=== PATIENT | female | born 1960 | race Caucasian/White ===

== ENCOUNTER 2023-11-16 09:21 | Emergency (ER) | payer MEDICARE, SELFPAY ==
[2023-11-16 09:27] VITALS: BP 145/73; PULSE 71; TEMP 36.6; O2SAT 98; BMI 39.5
--- NOTE | 2023-11-16 09:48 | ED_ITS ---
HPI HPI - General Adult General Chief complaint: Skin/Abscess/Foreign Body Stated complaint: LE PAIN Time Seen by Provider: 11/16/23 09:43 Source: patient Mode of arrival: walk-in History of Present Illness HPI narrative: This patient is here complaining of pain over her right lateral ankle. To her knowledge she has not had change in activity or injury to the area. She does have a history of gout previously. She said the pain was so bad last night it woke her up at 4:00 when she was not even weightbearing. She is taken several dose Tylenol without any benefit. She cannot take NSAIDs because of kidney pr oblems. She is not running a fever. She has not no other joint involvement. Related Data Allergies Allergy/AdvReac Type Severity Reaction Status Date / Time No Known Drug Allergies Allergy Verified 11/16/23 09:31 Opioid HPI Opioid Management Most Recent Opioid Data: No Data to Display Exam Narrative Exam Narrative: Awake alert pleasant vital signs are stable she is afebrile. Problem focused examination shows her calf Achilles area can be completely normal. There is no pain with pressure over her heel. The metatarsals are asymptomatic. She has no tenderness over the medial joint. She does have some soft tissue swelling noted over the lateral ankle mortise. There is no ecchymosis and there is no indication of cellulitis or insect bite. There is slight warmth to the joint on that side. And she does have pain with manipulation of the joint there. There is no overlying cellulitis. Constitutional Vital Signs, click to edit/add: Last Vital Signs Temp 98 F 11/16/23 09:27 Pulse 70 11/16/23 10:41 Resp 18 11/16/23 10:41 BP 138/73 11/16/23 10:41 Pulse Ox 98 11/16/23 10:41 Course Vital Signs Vital signs: Vital Signs Temperature 98 F 11/16/23 09:27 Pulse Rate 71 11/16/23 09:27 Respiratory Rate 20 11/16/23 09:27 Blood Pressure 145/73 H 11/16/23 09:27 Pulse Oximetry 98 11/16/23 09:27 Temperature 98 F 11/16/23 09:27 Pulse Rate 70 11/16/23 10:41 Respiratory Rate 18 11/16/23 10:41 Blood Pressure 138/73 11/16/23 10:41 Pulse Oximetry 98 11/16/23 10:41 Medical Decision Making MDM Narrative Medical decision making narrative: This patient's white blood cell count is normal however uric acid level is substantially elevated. This is consistent with an acute gout attack. This was discussed with the patient. She cannot take NSAIDs because of kidney problems. Will put her on a steroid burst and analgesics. She is not to apply ice Lab Data Labs: Lab Results 11/16/23 Range/Units 09:56 WBC 7.5 (4.0-11.0) 10^3/uL RBC 4.16 L (4.20-5.40) 10^6/uL Hgb 12.7 (12.0-16.0) g/dL Hct 39.0 (36.0-48.0) % MCV 93.8 (81.0-99.0) fL MCH 30.5 (26.7-34.0) pg MCHC 32.6 (29.9-35.2) g/dL RDW 12.9 (11.0-15.0) % Plt Count 245 (150-450) 10^3/uL MPV 10.9 (9.5-13.5) fL Neut % (Auto) 68.8 (43.0-75.0) % Lymph % (Auto) 22.1 (20.5-60.0) % [place] % (Auto) 6.4 (1.7-12.0) % Eos % (Auto) 1.9 (0.9-7.0) % Baso % (Auto) 0.5 (0.2-2.0) % Neut # (Auto) 5.1 (1.4-6.5) 10^3/uL Lymph # (Auto) 1.7 (1.2-3.8) 10^3/uL [place] # (Auto) 0.5 (0.3-0.8) 10^3/uL Eos # (Auto) 0.1 (0.0-0.7) 10^3/uL Baso # (Auto) 0.0 (0.0-0.1) 10^3/uL Abs Immat Gran (auto) 0.02 (0.00-0.03) 10^3/uL Imm/Tot Granulo (auto) 0.3 (0.0-0.5) % Uric Acid 7.3 H (2.6-6.0) mg/dL Discharge Plan Discharge Stand Alone Forms: Portal Instructions Chief Complaint: Skin/Abscess/Foreign Body Clinical Impression: Gout attack Patient Disposition: Home, Self-Care Time of Disposition Decision: 10:46 Print Language: Norwegian Additional Instructions: Prednisone/[place] Referrals: ELIANA CORONADO MD [Primary Care Provider] - 1 week
--- NOTE | 2023-11-16 09:49 | XR_ITS ---
The [address] [address] Patient Name: SAYRA BARAJAS MRN: [id number] date: 1960 Sex: F Assigned Patient Location: ER Current Patient Location: ER Accession/Order Number: [id number] Exam Date: 11/16/2023 10:30 Report Date: 11/16/2023 11:56 At the request of: GRAZYNA LAWRENCE Procedure: XR ankle RT min 3V EXAM: XR ankle RT min 3V 11/16/2023 FINDINGS: Frontal, oblique, and lateral views for 3 views obtained. HISTORY: Pain COMPARISON: None. XR/XR ankle RT min 3V IMPRESSION: 1. There is nonspecific soft tissue swelling and subcutaneous edematous changes throughout the right lower extremity. 2. No acute fracture or dislocation. The alignment is satisfactory. 3. Small calcaneal enthesophytes at the insertion sites of the Achilles tendon and plantar aponeurosis noted. There is no radiopaque foreign body. Mild multifocal arthritic changes of the midfoot are noted. Electronically authenticated by: PAMELA LAURA Date: 11/16/2023 11:56
[2023-11-16 10:04] LABS: Basophils Percent Auto 0.5 % (0.2-2.0); Eosinophils Absolute Auto 0.1 10^3/uL (0.0-0.7); Eosinophils Percent Auto 1.9 % (0.9-7.0); Hemoglobin 12.7 g/dL (12.0-16.0); Immature Granulocytes Abs Auto 0.02 10^3/uL (0.00-0.03); Immature Granulocytes Pct Auto 0.3 % (0.0-0.5); Lymphocytes Absolute Auto 1.7 10^3/uL (1.2-3.8); Lymphocytes Percent Auto 22.1 % (20.5-60.0); Mean Corpuscular HGB Conc 32.6 g/dL (29.9-35.2); Mean Corpuscular Hemoglobin 30.5 pg (26.7-34.0); Mean Corpuscular Volume 93.8 fL (81.0-99.0); Mean Platelet Volume 10.9 fL (9.5-13.5); Monocytes Absolute Auto 0.5 10^3/uL (0.3-0.8); Monocytes Percent Auto 6.4 % (1.7-12.0); Neutrophils Absolute Auto 5.1 10^3/uL (1.4-6.5); Neutrophils Percent Auto 68.8 % (43.0-75.0); Platelet Count 245 10^3/uL (150-450); Red Blood Count 4.16 10^6/uL (4.20-5.40); Red Cell Distribution Width 12.9 % (11.0-15.0); White Blood Count 7.5 10^3/uL (4.0-11.0)
[2023-11-16 10:19] LABS: Uric Acid 7.3 mg/dL (2.6-6.0)
[2023-11-16 10:41] VITALS: BP 138/73; PULSE 70; O2SAT 98
== END 2023-11-16 10:53 | disposition home or self-care (01) ==
PROVIDERS: Emergency Provider Emergency Medicine Emergency Medical Services; PCP Internal Medicine
DX: M10.9 Gout, unspecified (principal)
CPT/HCPCS: 36415; 73610; 84550; 85025; 99284